=== PATIENT | male | born 1985 | race Caucasian/White ===

== ENCOUNTER 2024-11-13 05:49 | Emergency (ER) | payer MEDICAID, OTHER ==
[~2024-11-13] VITALS: Ht 188 cm; Wt 320.0 kg
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
[2024-11-13 07:23] VITALS: BP 164/64; PULSE 99; RESP 18; TEMP 98.6; O2SAT 98
[2024-11-13] MEDS ORDERED: ACET500T58 PO (07:43)
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
== END 2024-11-13 07:52 | disposition home or self-care (01) ==
LOC: ER 05:49 → EDBD 05:49 → ER 07:50
DX: M79.10 Myalgia, unspecified site (principal); Y08.89XA Assault by other specified means, initial encounter; Y93.89 Activity, other specified; Y92.009 Unspecified place in unspecified non-institutional (private) residence as the place of occurrence of the external cause; Y99.8 Other external cause status
CPT/HCPCS: 70450; 70486